=== PATIENT | male | born 1990 | race Caucasian/White ===

== ENCOUNTER 2018-04-04 13:15 | Emergency (ER) | payer OTHER ==
[2018-04-04] MEDS: ONDANSETRON (ODT) 4 MG TAB ODT (15:06)
[2018-04-04] MEDS: ACETAMINOPHEN 325 MG TAB PO (15:06)
[2018-04-04 15:16] LABS: ADD UMIC YES; UR ASCORBIC ACID NEGATIVE (NEGATIVE); UR BILIRUBIN (Dip) NEGATIVE (NEGATIVE); UR BLOOD (Dip) NEGATIVE (NEGATIVE); UR CLARITY CLEAR (CLEAR); UR COLOR YELLOW (YELLOW); UR GLUCOSE (Dip) NEGATIVE (NEGATIVE); UR KETONES (Dip) NEGATIVE (NEGATIVE); UR LEUKOCYTE ESTERASE (Dip) NEGATIVE Leu/ul (NEGATIVE); UR MUCUS MANY /HPF (NONE SEEN); UR NITRITE (Dip) NEGATIVE (NEGATIVE); UR RBC 10 /HPF (0-5); UR SPECIFIC GRAVITY (Dip) 1.034 (1.003-1.030); UR TOTAL PROTEIN (Dip) 1+ mg/dl (NEGATIVE); UR UROBILINOGEN (Dip) 1+ mg/dL (NEGATIVE); UR WBC 1 /HPF (0-5)
== END 2018-04-04 17:42 | disposition home or self-care (01) ==
LOC: FTE 13:15
DX: R51 Headache (principal); R11.2 Nausea with vomiting, unspecified
CPT/HCPCS: 70450; 76775; 81001; 99284-25

== ENCOUNTER 2018-04-06 14:33 | Emergency (ER) | payer OTHER ==
[2018-04-06] MEDS: DICYCLOMINE 10 MG CAP PO (15:03)
[2018-04-06] MEDS: ONDANSETRON (ODT) 4 MG TAB ODT (15:04)
== END 2018-04-06 15:23 | disposition home or self-care (01) ==
LOC: FTE 14:33
DX: R19.7 Diarrhea, unspecified (principal); R11.0 Nausea
CPT/HCPCS: 99283; Z7502